=== PATIENT | male | born 1955 | race Caucasian/White ===

== ENCOUNTER 2020-02-06 15:12 | Emergency (ER) | payer OTHER, SELFPAY ==
--- NOTE | 2020-02-06 | XR_ITS ---
EXAMINATION: X-RAY HAND, LEFT CLINICAL INFORMATION: Crushing injury of the left thumb COMPARISON: None TECHNIQUE: PA, oblique, scaphoid and lateral views of the left hand FINDINGS: There is a subtle transverse linear lucency in the proximal phalanx of the thumb, concerning for nondisplaced fracture. The remainder of the bones are intact. There are moderate to severe degenerative changes of the first carpometacarpal joint with subchondral sclerosis and hypertrophic change. There is mild soft tissue swelling of the thumb. IMPRESSION: Subtle transverse linear lucency in the proximal phalanx of the thumb, concerning for nondisplaced fracture. Moderate to severe degenerative changes of the first carpometacarpal joint.
[2020-02-06 15:18] VITALS: BP 134/75; PULSE 57; RESP 16; TEMP 37.2; O2SAT 100
[2020-02-06 15:25] VITALS: BP 134/75; PULSE 57; RESP 16; TEMP 37.2; O2SAT 100; BMI 29.2
--- NOTE | 2020-02-06 15:47 | ED.EXTPRO ---
HPI - Extremity Problem General Chief complaint: Extremity Injury, Upper Stated complaint: Thumb Swelling Time Seen by Provider: 02/06/20 15:47 Source: patient Mode of arrival: ambulatory Limitations: no limitations History of Present Illness HPI Narrative: Patient is a 64-year-old male who had a crush injury to his left thumb, states a shovel fell on it while he was doing some work yesterday morning. States it hurts and is very bruised and swollen. Related Data Allergies Allergy/AdvReac Type Severity Reaction Status Date / Time No Known Allergies Allergy Verified 02/06/20 15:32 Review of Systems Review of Systems: Yes all other systems are reviewed and are negative [facility] Past Medical History Medical History No known health problems Social History Social History Smoking Status: Light tobacco smoker Use of substances other than those prescribed or required for medical reasons: No Advance Directives: No Advance Directives Information Provided: No Physical Exam Vital Signs: Vital Signs: Vital Signs Temp Pulse Resp BP Pulse Ox 02/06/20 15:25 98.9 F 57 16 134/75 100 02/06/20 15:18 98.9 F 57 16 134/75 100 Body Mass Index 29.2 Const: General: cooperative, healthy appearing, comfortable and no acute distress HENMT: Head: Yes normal to inspection Eyes: General: appearance normal, both eyes and all related structures Resp: Effort & Inspection: normal respiratory effort Extrem: Left upper extremity: hand (Left thumb) Details: abnormal to inspection Details: joint swelling, neurosensory exam normal, abnormal ROM of finger (Left thumb) Details: pain with active ROM, pain with passive ROM and unable to flex and ecchymosis; no abrasions and no lacerations Course Course Course Narrative: 64-year-old male complaining of injury to left some joint, shovel slammed on it yesterday morning while working. Physical exam reveals swollen thumb joint of left hand, ecchymosis, no signs of infection or lacerations noted, limited ROM 2/2 pain. Will get x-ray to ensure no fracture. Procedures Orthopedic Splinting/Casting Injury #1: Side: left Upper Extremity Injury Location: finger Upper Extremity Immobilizer: thumb spica (left thumb) MDM - Extremity (Nontraumatic) MDM Narrative Medical decision making narrative: Subtle transverse linear lucency in the proximal phalanx of the thumb, concerning for nondisplaced fracture. Placed thumb spica with follow-up with ortho. Imaging Data hand x-ray, left: Attestation: I personally reviewed and interpreted this imaging study as follows: Radiologist's impression: IMPRESSION: Subtle transverse linear lucency in the proximal phalanx of the thumb, concerning for nondisplaced fracture. Moderate to severe degenerative changes of the first carpometacarpal joint. Discharge Plan Discharge Clinical Impression: Closed fracture of proximal phalanx of thumb Qualifiers: Encounter type: initial encounter Fracture alignment: nondisplaced Laterality: left Qualified Code(s): S62.515A - Nondisplaced fracture of proximal phalanx of left thumb, initial encounter for closed fracture Patient Disposition: Home, Self-Care Instructions: Finger Fracture (ED) Referrals: Neeta Vazquez MD [Physician] - 2 days
--- NOTE | 2020-02-06 16:40 | PC.NURSE ---
THUMB SPIKA SPLINT APPLIED TO L HAND
== END 2020-02-06 16:20 | disposition home or self-care (01) ==
PROVIDERS: Emergency Provider Emergency Medicine
DX: S62.515A Nondisplaced fracture of proximal phalanx of left thumb, initial encounter for closed fracture (principal); W20.8XXA Other cause of strike by thrown, projected or falling object, initial encounter; Y93.H1 Activity, digging, shoveling and raking; Y92.017 Garden or yard in single-family (private) house as the place of occurrence of the external cause; Y99.9 Unspecified external cause status
CPT/HCPCS: 29130; 73110; 73130; 99283; 99284

== ENCOUNTER → 2020-02-10 14:01 | Outpatient (BNVA) | payer OTHER, SELFPAY | PROVIDERS: Visit Provider Physician Assistant | DX: Z76.89 Persons encountering health services in other specified circumstances (principal) ==

== ENCOUNTER 2020-02-24 08:50 | Outpatient (REF) | payer OTHER, SELFPAY | END 2020-02-24 08:51 | disposition home or self-care (01) | LOC: HO.LAB 08:50 | PROVIDERS: Visit Provider Internal Medicine | DX: Z20.828 Contact with and (suspected) exposure to other viral communicable diseases (principal) | CPT/HCPCS: C9803; U0003 ==

== ENCOUNTER 2020-03-27 06:09 | Outpatient (REF) | payer OTHER, SELFPAY | END 2020-03-27 06:10 | disposition home or self-care (01) | LOC: HO.LAB 06:09 | PROVIDERS: Visit Provider Internal Medicine | DX: Z20.828 Contact with and (suspected) exposure to other viral communicable diseases (principal) | CPT/HCPCS: C9803; U0003 ==